=== PATIENT | male | born 1985 | race African-American/Black ===

== ENCOUNTER 2021-08-03 07:48 | Emergency (ER) | payer OTHER ==
[2021-08-03] MEDS ORDERED: SODIUM CHLORIDE 0.9% 1,000 ML IV STA (08:32)
[2021-08-03 08:43] VITALS: RESP 18
--- NOTE | 2021-08-03 08:46 | ED ---
General Adult HPI - General Chief complaint: Urogenital Stated complaint: blood in urine Time Seen by Provider: 08/03/21 08:15 Source: patient, RN notes reviewed Mode of arrival: ambulatory Limitations: no limitations - History of Present Illness Initial comments: This a 35-year-old male presents to the emergency Department with chief complaint of hematuria. Patient states she's had several episodes last few days. Patient does admit that he had recent seizure last week was in the hospital in [place]. Patient states that he had very sure of all the details as he was confused at the time. Patient states that he is to follow-up with his PCP he was placed on Keppra. Patient states he does have a fracture of his right shoulder. Patient denies any current headache dizziness states he didn't tongue injury related to a seizure but states that he had no abdominal pain denies any flank pain no history kidney stones. Patient states that is blood- tinged urine and blood itself. Patient has no dysuria - Related Data Home Medications Medication Instructions Recorded Confirmed levETIRAcetam [Keppra] 500 mg PO Q12HR 08/03/21 08/03/21 Previous Rx's Medication Instructions Recorded HYDROcodone/APAP 5-325MG [[place] 5] 1 each PO Q6HR PRN #12 tab 08/03/21 Ondansetron Odt [Zofran Odt] 4 mg PO Q8HR PRN #10 tab 08/03/21 Tamsulosin [Flomax] 0.4 mg PO DAILY #7 cap 08/03/21 Allergies Allergy/AdvReac Type Severity Reaction Status Date / Time No Known Allergies Allergy Verified 08/03/21 10:11 Review of Systems ROS Statement: Those systems with pertinent positive or pertinent negative responses have been documented in the HPI. ROS Other: All systems not noted in ROS Statement are negative. Past Medical History Past Medical History: Seizure Disorder History of Any Multi-Drug Resistant Organisms: None Reported Past Psychological History: No Psychological Hx Reported Smoking Status: Current every day smoker Past Alcohol Use History: Occasional Past Drug Use History: Marijuana General Exam Limitations: no limitations General appearance: alert, in no apparent distress Head exam: Present: atraumatic, normocephalic, normal inspection Eye exam: Present: normal appearance, PERRL, EOMI. Absent: scleral icterus, conjunctival injection, periorbital swelling ENT exam: Present: normal exam, normal oropharynx, mucous membranes moist Neck exam: Present: normal inspection, full ROM. Absent: tenderness, meningismus, lymphadenopathy Respiratory exam: Present: normal lung sounds bilaterally. Absent: respiratory distress, wheezes, rales, rhonchi, stridor Cardiovascular Exam: Present: regular rate, normal rhythm, normal heart sounds. Absent: systolic murmur, diastolic murmur, rubs, gallop, clicks GI/Abdominal exam: Present: soft, normal bowel sounds. Absent: distended, tenderness, guarding, rebound, rigid Back exam: Absent: CVA tenderness (R), CVA tenderness (L) Course Vital Signs 08/03/21 08/03/21 08/03/21 08:07 08:39 08:45 Temperature 98.2 F Pulse Rate 72 64 Respiratory 20 18 18 Rate Blood Pressure 126/82 128/87 O2 Sat by Pulse 100 99 100 Oximetry Medical Decision Making - Medical Decision Making 35-year-old male presented for right flank pain. Patient has evidence of 2 mm kidney stone in the ureter. Patient was given pain relief patient will be discharged in stable condition return parameters were discussed. - Lab Data Result diagrams: 08/03/21 08:47 08/03/21 08:47 Lab Results 08/03/21 08/03/21 08/03/21 Range/Units 08:47 08:47 08:47 WBC 12.7 H (3.8-10.6) k/uL RBC 4.66 (4.30-5.90) m/uL Hgb 14.9 (13.0-17.5) gm/dL Hct 44.3 (39.0-53.0) % MCV 95.0 (80.0-100.0) fL MCH 31.9 (25.0-35.0) pg MCHC 33.6 (31.0-37.0) g/dL RDW 13.0 (11.5-15.5) % Plt Count 227 (150-450) k/uL MPV 8.3 Neutrophils % 67 % Lymphocytes % 22 % Monocytes % 6 % Eosinophils % 3 % Basophils % 0 % Neutrophils # 8.5 H (1.3-7.7) k/uL Lymphocytes # 2.8 (1.0-4.8) k/uL Monocytes # 0.7 (0-1.0) k/uL Eosinophils # 0.3 (0-0.7) k/uL Basophils # 0.1 (0-0.2) k/uL PT 10.4 (9.0-12.0) sec INR 0.9 (<1.2) APTT 25.6 (22.0-30.0) sec Sodium 137 (137-145) mmol/L Potassium 4.3 (3.5-5.1) mmol/L Chloride 98 (98-107) mmol/L Carbon Dioxide 26 (22-30) mmol/L Anion Gap 13 mmol/L BUN 16 (9-20) mg/dL Creatinine 1.08 (0.66-1.25) mg/dL Est GFR (CKD-EPI)AfAm >90 (>60 ml/min/1.73 sqM) Est GFR (CKD-EPI)NonAf 87 (>60 ml/min/1.73 sqM) Glucose 104 H (74-99) mg/dL Plasma Lactic Acid Abner (0.7-2.0) mmol/L Calcium 10.1 (8.4-10.2) mg/dL Total Bilirubin 1.7 H (0.2-1.3) mg/dL AST 66 H (17-59) U/L ALT 34 (4-49) U/L Alkaline Phosphatase 51 (38-126) U/L Total Protein 8.1 (6.3-8.2) g/dL Albumin 4.8 (3.5-5.0) g/dL Amylase 104 (30-110) U/L Lipase 286 (23-300) U/L 08/03/21 Range/Units 08:47 WBC (3.8-10.6) k/uL RBC (4.30-5.90) m/uL Hgb (13.0-17.5) gm/dL Hct (39.0-53.0) % MCV (80.0-100.0) fL MCH (25.0-35.0) pg MCHC (31.0-37.0) g/dL RDW (11.5-15.5) % Plt Count (150-450) k/uL MPV Neutrophils % % Lymphocytes % % Monocytes % % Eosinophils % % Basophils % % Neutrophils # (1.3-7.7) k/uL Lymphocytes # (1.0-4.8) k/uL Monocytes # (0-1.0) k/uL Eosinophils # (0-0.7) k/uL Basophils # (0-0.2) k/uL PT (9.0-12.0) sec INR (<1.2) APTT (22.0-30.0) sec Sodium (137-145) mmol/L Potassium (3.5-5.1) mmol/L Chloride (98-107) mmol/L Carbon Dioxide (22-30) mmol/L Anion Gap mmol/L BUN (9-20) mg/dL Creatinine (0.66-1.25) mg/dL Est GFR (CKD-EPI)AfAm (>60 ml/min/1.73 sqM) Est GFR (CKD-EPI)NonAf (>60 ml/min/1.73 sqM) Glucose (74-99) mg/dL Plasma Lactic Acid Abner 1.4 (0.7-2.0) mmol/L Calcium (8.4-10.2) mg/dL Total Bilirubin (0.2-1.3) mg/dL AST (17-59) U/L ALT (4-49) U/L Alkaline Phosphatase (38-126) U/L Total Protein (6.3-8.2) g/dL Albumin (3.5-5.0) g/dL Amylase (30-110) U/L Lipase (23-300) U/L Disposition Clinical Impression: Right ureteral calculus Disposition: HOME SELF-CARE Condition: Stable Instructions (If sedation given, give patient instructions): Kidney Stones (ED) Additional Instructions: Please return to the Emergency Department if symptoms worsen or any other concerns. Prescriptions: Tamsulosin [Flomax] 0.4 mg PO DAILY #7 cap HYDROcodone/APAP 5-325MG [[place] 5] 1 each PO Q6HR PRN #12 tab PRN Reason: Pain Ondansetron Odt [Zofran Odt] 4 mg PO Q8HR PRN #10 tab PRN Reason: Nausea Is patient prescribed a controlled substance at d/c from ED?: No Referrals: None,Stated [REFERRING] - 1-2 days Asad Hayden MD [STAFF PHYSICIAN] - 1-2 days Time of Disposition: 10:30
[2021-08-03 09:13] LABS: ALT 34 U/L (4-49); AST 66 U/L (17-59); African American GFR (CKD) >90 (>60 ml/min/1.73 sqM); Albumin 4.8 g/dL (3.5-5.0); Alkaline Phosphatase 51 U/L (38-126); Amylase 104 U/L (30-110); Anion Gap 13 mmol/L; Blood Urea Nitrogen 16 mg/dL (9-20); Calcium 10.1 mg/dL (8.4-10.2); Carbon Dioxide 26 mmol/L (22-30); Chloride 98 mmol/L (98-107); Glucose 104 mg/dL (74-99); Lipase 286 U/L (23-300); Non-African American GFR(CKD) 87 (>60 ml/min/1.73 sqM); Potassium 4.3 mmol/L (3.5-5.1); Sodium 137 mmol/L (137-145); Total Bilirubin 1.7 mg/dL (0.2-1.3); Total Protein 8.1 g/dL (6.3-8.2)
[2021-08-03 09:18] LABS: Basophils # (A) 0.1 k/uL (0-0.2); Basophils % (A) 0 %; Eosinophils # (A) 0.3 k/uL (0-0.7); Eosinophils % (A) 3 %; HCT 44.3 % (39.0-53.0); HGB 14.9 gm/dL (13.0-17.5); Lymphocytes # (A) 2.8 k/uL (1.0-4.8); Lymphocytes % (A) 22 %; MCH 31.9 pg (25.0-35.0); MCHC 33.6 g/dL (31.0-37.0); Mean Platelet Volume 8.3; Monocytes # (A) 0.7 k/uL (0-1.0); Monocytes % (A) 6 %; Neutrophils # (A) 8.5 k/uL (1.3-7.7); Neutrophils % (A) 67 %; Platelet Count 227 k/uL (150-450); RBC 4.66 m/uL (4.30-5.90); WBC 12.7 k/uL (3.8-10.6)
[2021-08-03 09:26] LABS: INR 0.9 (<1.2); Partial Thromboplastin Time 25.6 sec (22.0-30.0); Prothrombin Time 10.4 sec (9.0-12.0)
--- NOTE | 2021-08-03 09:36 | CT ---
EXAMINATION TYPE: CT abdomen pelvis wo con DATE OF EXAM: 08/03/2021 COMPARISON: None available HISTORY: Hematuria. CT DLP: 404.4 mGycm Automated exposure control for dose reduction was used. TECHNIQUE: Helical acquisition of images was performed from the lung bases through the pelvis. FINDINGS: Artifacts in the upper abdomen by the patient's arm. LUNG BASES: Bilateral basal subsegmental pulmonary atelectasis. LIVER/GB: No significant abnormality is appreciated. PANCREAS: No significant abnormality is seen. SPLEEN: No significant abnormality is seen. ADRENALS: No significant abnormality is seen. KIDNEYS: Questionable subtle faint 2 mm calculus at the midpole of right kidney. Grossly unremarkable kidneys otherwise. FREE AIR: No free air is visualized RETROPERITONEAL ADENOPATHY: None visualized REPRODUCTIVE ORGANS: No significant abnormality is seen URINARY BLADDER: No significant abnormality is seen. PELVIC ADENOPATHY: No pathologically enlarged pelvic lymph nodes. OSSEOUS STRUCTURES: No significant abnormality is seen. BOWEL: Unremarkable nondistended stomach and duodenum. Suboptimal assessment of the small and large bowel. No evidence of bowel obstruction. Fecal loading of the colon. OTHER: No sizable ascites. Soft tissue thickening along the spermatic cords in the inguinal region bi laterally, nonspecific. Further elective ultrasound assessment can be considered. IMPRESSION: Questionable faint 2 mm calculus at the midpole of the right kidney, otherwise unremarkable kidneys. No other definite radiodense urinary calculi. Subtle urinary lesion or inflammatory/infectious process cannot be excluded by this nonenhanced CT sc an. Other incidental findings as described above.
[2021-08-03] MEDS ORDERED: ONDANSETRON 4 MG/2 ML VIAL IVP STA (11:20)
[2021-08-03] MEDS ORDERED: KETOROLAC 15 MG/ML 1 ML VIAL IVP STA (11:20)
[2021-08-03] MEDS ORDERED: HYDROmorphone 0.5 MG/0.5 ML SYRINGE IVP STA (11:20)
[2021-08-03 11:28] LABS: Appearance,Urine Clear (Clear); Bilirubin,Urine Negative (Negative); Blood,Urine Small (Negative); Color,Urine Yellow; Glucose,Urine (UA) Negative (Negative); Hyaline Casts,Urine 1 /lpf (0-2); Ketones,Urine Negative (Negative); Leukocyte Esterase,Urine Large (Negative); Mucus,Urine Rare /hpf; Nitrite,Urine Negative (Negative); PH, Urine 5.5 (5.0-8.0); Protein,Urine 1+ (Negative); RBC,Urine 6 /hpf (0-5); Specific Gravity,Urine 1.013 (1.001-1.035); Urobilinogen,Urine <2.0 mg/dL (<2.0); WBC,Urine 62 /hpf (0-5)
[2021-08-03 11:32] VITALS: BP 118/79; PULSE 71; TEMP 97.8
== END 2021-08-03 11:37 | disposition home or self-care (01) ==
LOC: EC 07:48
DX: N20.1 Calculus of ureter (principal); F17.200 Nicotine dependence, unspecified, uncomplicated
CPT/HCPCS: 36415; 80053; 82150; 83605; 83690; 85025; 85610; 85730; 81001; 87086; 74176; 99284; 96374; 96375; 96361; J2405; J1885; J1170

== ENCOUNTER 2021-08-10 14:16 | Emergency (ER) | payer OTHER ==
[2021-08-10 14:31] VITALS: BP 127/76; PULSE 66; RESP 18; TEMP 98.2
--- NOTE | 2021-08-10 19:17 | CT ---
EXAMINATION TYPE: CT shoulder RT wo con DATE OF EXAM: 08/10/2021 COMPARISON: None HISTORY: Shoulder pain CT DLP: mGycm Automated exposure control for dose reduction was used. Images obtained from the mid humerus to the top of the AC joint with no contrast. There is comminuted fracture of the right humeral neck. There is also large chip fracture of the grea ter tuberosity of the humerus. There is some impaction of the fragments. There is a posterior disloca tion of the major articular surface of the humeral head. The scapula is intact. AC joint is intact. There is also a fracture line through the acromion which i s irregular and not an acute fracture. IMPRESSION: There is comminuted posterior fracture dislocation of the right humeral head. Mild impaction of the f ragments. There is defect in the acromion that is consistent with an old ununited fracture or ununited apophysi s..
--- NOTE | 2021-08-10 20:13 | ED ---
General Adult HPI - General Chief complaint: Extremity Injury, Upper Stated complaint: Seizure, Right shoulder injury Time Seen by Provider: 08/10/21 17:45 Source: patient, RN notes reviewed, old records reviewed Mode of arrival: ambulatory Limitations: no limitations - History of Present Illness Initial comments: Patient is a 35-year-old male who presents emergency Department seeking computed tomography scan of the right shoulder. Patient was evaluated within the last 2 weeks, had an episode of potential seizure at home which caused him to fall onto the ground. Woke up 2 days later in the hospital with a known right shoulder fracture. Currently seeing neurology outpatient for seizures as well as orthopedics outpatient for his right shoulder injury. Was instructed by orthopedics to present to the emergency department to obtain CT of the right shoulder. Has attempted once or twice in last 2 days but waited a prolonged period of time multiple hours at both ERs without being seen. Presents today seeking CT imaging of the right shoulder only. Plan is for discharge home with a disc to take to a surgeon for follow-up and surgical planning. Denies any new complaints. Is complaining of intermittent right shoulder pain. Has been wearing a sling. Has no other complaints at this time. - Related Data Home Medications Medication Instructions Recorded Confirmed levETIRAcetam [Keppra] 500 mg PO Q12HR 08/03/21 08/03/21 Previous Rx's Medication Instructions Recorded HYDROcodone/APAP 5-325MG [[place] 5] 1 each PO Q6HR PRN #12 tab 08/03/21 Ondansetron Odt [Zofran Odt] 4 mg PO Q8HR PRN #10 tab 08/03/21 Tamsulosin [Flomax] 0.4 mg PO DAILY #7 cap 08/03/21 Allergies Allergy/AdvReac Type Severity Reaction Status Date / Time No Known Allergies Allergy Verified 08/03/21 10:11 Review of Systems ROS Statement: Those systems with pertinent positive or pertinent negative responses have been documented in the HPI. Review of Systems: CONST: Denies fever EYES: Denies blurry vision ENT: Denies nasal congestion C/V: Denies Chest pain RESP: Denies shortness of breath GI: Denies abdominal pain : Denies dysuria SKIN: Denies rash. MSK: Endorses right shoulder pain, known fracture. NEURO: Denies headache ROS Other: All systems not noted in ROS Statement are negative. Past Medical History Past Medical History: Seizure Disorder History of Any Multi-Drug Resistant Organisms: None Reported Additional Past Surgical History / Comment(s): hemroid Past Psychological History: No Psychological Hx Reported Smoking Status: Current every day smoker Past Alcohol Use History: Occasional Past Drug Use History: Marijuana General Exam - General Exam Comments Initial Comments: General: Appears in no acute distress. HEAD: Normal with no signs of head trauma. EYES: EOMI ENT: Hearing grossly intact RESPIRATORY: No increased work of breathing. Clear breath sounds bilaterally. C/V: Peripheral pulses 2+ and intact throughout. S1 and S2 auscultated. ABD: Abd is soft, nontender, nondistended EXT: Obvious reduced range of motion the right shoulder secondary to fracture that is known. Intact distal movement of the right hand. Neurovascular intact distal to the injury. Is currently wearing sling. SKIN: No rashes or lesions observed on exposed skin. NEURO: Alert and oriented 4. Limitations: no limitations Course Vital Signs 08/10/21 14:29 Temperature 98.2 F Pulse Rate 66 Respiratory 18 Rate Blood Pressure 127/76 O2 Sat by Pulse 98 Oximetry Medical Decision Making - Medical Decision Making Based on the patient's presentation and physical exam, he has a known right shoulder fracture but is seeking preoperative CT imaging after being unable to obtain CT imaging over the last week or so. Has no other acute request for complaints at this time. Exam is unremarkable. I believe it is reasonable to obtain a CT of the right shoulder which will be completed. He'll then be given a disc and instructions follow up with the surgeon outpatient. Shoulder CT does reveal a comminuted posterior fracture dislocation the right humeral head. There is also mild impaction the fragments. There is a defect of the acromion that could represent an old fracture. On reevaluation, patient was provided with a read of the CT as well as the CT disc. He'll be discharged home with instructions to follow up with the surgeons as planned. He was in agreement this plan. I instructed the patient to follow up with their PCP in the next 3 days. Patient will be given follow-up with our orthopedic surgeon on-call in the event that he cannot follow up with his surgeon. I explained that the patient should return to the emergency department if they experience any worsening symptoms. Strict return precautions were discussed with the patient. The patient expressed understanding of these instructions. I answered all questions that the patient had. The patient was discharged home in fair condition with their prescriptions and follow up information. Disposition Clinical Impression: Right shoulder injury, Humeral head fracture Disposition: HOME SELF-CARE Condition: Fair Instructions (If sedation given, give patient instructions): Proximal Humerus Fracture (ED) Is patient prescribed a controlled substance at d/c from ED?: No Referrals: Nonstaff,Physician [Primary Care Provider] - 1-2 days Laron Beal MD [Medical Doctor] - 1-2 days Time of Disposition: 20:12
== END 2021-08-10 20:16 | disposition home or self-care (01) ==
LOC: EC 14:16
DX: S42.291A Other displaced fracture of upper end of right humerus, initial encounter for closed fracture (principal); S49.91XA Unspecified injury of right shoulder and upper arm, initial encounter; F17.200 Nicotine dependence, unspecified, uncomplicated; W19.XXXA Unspecified fall, initial encounter

== ENCOUNTER 2022-02-22 13:03 | Emergency (ER) | payer OTHER ==
--- NOTE | 2022-02-22 13:28 | ED ---
General Adult HPI - General Stated complaint: COVID test Time Seen by Provider: 02/22/22 13:27 Source: patient, RN notes reviewed Mode of arrival: ambulatory Limitations: no limitations - History of Present Illness Initial comments: 28-year-old male presents emergency Department with chief complaint of possible COVID-19. Patient has mild body aches. Patient's significant other is positive for COVID-19. Patient states he just wants to make sure if he has or not. Denies any shortness breath chest pain nausea vomiting diarrhea constipation. - Related Data Home Medications Medication Instructions Recorded Confirmed levETIRAcetam [Keppra] 500 mg PO Q12HR 08/03/21 08/03/21 Previous Rx's Medication Instructions Recorded HYDROcodone/APAP 5-325MG [[place] 5] 1 each PO Q6HR PRN #12 tab 08/03/21 Ondansetron Odt [Zofran Odt] 4 mg PO Q8HR PRN #10 tab 08/03/21 Tamsulosin [Flomax] 0.4 mg PO DAILY #7 cap 08/03/21 Allergies Allergy/AdvReac Type Severity Reaction Status Date / Time No Known Allergies Allergy Verified 02/22/22 13:34 Review of Systems ROS Statement: Those systems with pertinent positive or pertinent negative responses have been documented in the HPI. ROS Other: All systems not noted in ROS Statement are negative. Past Medical History Past Medical History: Seizure Disorder History of Any Multi-Drug Resistant Organisms: None Reported Additional Past Surgical History / Comment(s): hemroid Past Psychological History: No Psychological Hx Reported Smoking Status: Current every day smoker Past Alcohol Use History: Occasional Past Drug Use History: Marijuana General Exam Limitations: no limitations General appearance: alert, in no apparent distress Head exam: Present: atraumatic, normocephalic, normal inspection Eye exam: Present: normal appearance, PERRL, EOMI. Absent: scleral icterus, conjunctival injection, periorbital swelling ENT exam: Present: normal exam, mucous membranes moist Neck exam: Present: normal inspection. Absent: tenderness, meningismus, lymphadenopathy Respiratory exam: Present: normal lung sounds bilaterally. Absent: respiratory distress, wheezes, rales, rhonchi, stridor Cardiovascular Exam: Present: regular rate, normal rhythm, normal heart sounds. Absent: systolic murmur, diastolic murmur, rubs, gallop, clicks GI/Abdominal exam: Present: soft, normal bowel sounds. Absent: distended, tenderness, guarding, rebound, rigid Neurological exam: Present: alert Skin exam: Present: warm, dry, intact, normal color. Absent: rash Course Vital Signs 02/22/22 13:33 Temperature 98.6 F Pulse Rate 61 Respiratory 20 Rate Blood Pressure 115/72 O2 Sat by Pulse 99 Oximetry Medical Decision Making - Medical Decision Making Was pt. sent in by a medical professional or institution? @ -no Did you speak to anyone other than the patient for history? @ -no Did you review nursing and triage notes? @ -agree and reviewed Were old charts reviewed? @ -no Differential Diagnosis? @ -URI, COVID-19, influenza, RSV EKG interpreted by me (3pts min.)? @ -none X-rays interpreted by me (1pt min.)? @ -none CT interpreted by me (1pt min.)? @ -none U/S interpreted by me (1pt. min.)? @ -none What testing was considered but not performed? (CT, X-rays, U/S, labs)? Why? @ no What meds were considered but not given? Why? @ -none Did you discuss the management of the patient with other professionals? @ -no Did you reconcile home meds? @ -no Was smoking cessation discussed for >3mins.? @ -no Was critical care preformed (if so, how long)? @ no Were there social determinants of health that impacted care today? How? (Homelessness, low income, unemployed, alcoholism, drug addiction, transp ortation, low edu. Level, literacy, decrease access to med. care, fpc, rehab)? @ -no Was there de-escalation of care discussed even if they declined? (Discuss DNR or withdrawal of care, Hospice)? @ no What co-morbidities impacted this encounter? (DM, HTN, Smoking, COPD, CAD, Cancer, CVA, Hep., AIDS, mental health diagnosis, sleep apnea, morbid obesity)? @ -no Was patient admitted / discharged? @ discharged Undiagnosed new problem with uncertain prognosis? @ -no Drug Therapy requiring intensive monitoring for toxicity (Heparin, Nitro, Insulin, Cardizem)? @ -none Were any procedures done? @ -none Diagnosis/symptom? @ -Encounter for COVID-19 testing Acute, or Chronic, or Acute on Chronic? @ -acute Uncomplicated (without systemic symptoms) or Complicated (systemic symptoms)? @ -Uncomplicated Side effects of treatment? @ -none Exacerbation, Progression, or Severe Exacerbation] @ -no Poses a threat to life or bodily function? @ -no - Lab Data Lab Results 02/22/22 Range/Units 13:36 Coronavirus (PCR) Not Detected (Not Detectd) Disposition Clinical Impression: Encounter for screening for COVID-19 Disposition: HOME SELF-CARE Condition: Stable Additional Instructions: Please return to the Emergency Department if symptoms worsen or any other concerns. Is patient prescribed a controlled substance at d/c from ED?: No Referrals: Jamir Cheung MD [Primary Care Provider] - 1-2 days Time of Disposition: 14:29
[2022-02-22 13:35] VITALS: BP 115/72; PULSE 61; RESP 20; TEMP 98.6
== END 2022-02-22 15:02 | disposition home or self-care (01) ==
LOC: EC 13:03
DX: Z01.84 Encounter for antibody response examination (principal); F17.200 Nicotine dependence, unspecified, uncomplicated; F12.90 Cannabis use, unspecified, uncomplicated
CPT/HCPCS: 87635; 99283

== ENCOUNTER 2023-04-05 23:58 | Emergency (ER) | payer OTHER ==
[2023-04-06 00:42] VITALS: RESP 18
--- NOTE | 2023-04-06 01:42 | ED ---
ENT HPI - General Chief complaint: ENT Stated complaint: sore throat body ache Time Seen by Provider: 04/06/23 01:41 Source: patient Mode of arrival: ambulatory Limitations: no limitations - History of Present Illness Initial comments: 37-year-old male presenting to the ED with a chief complaint of body aches. Patient states today onset of some body aches and cough and per request of his significant other wanted to be evaluated due to having a at home. Denies fever or chills. No chest pain or shortness of breath. No other complaints at this time. - Related Data Home Medications Medication Instructions Recorded Confirmed levETIRAcetam [Keppra] 500 mg PO Q12HR 08/03/21 08/03/21 Previous Rx's Medication Instructions Recorded HYDROcodone/APAP 5-325MG [[place] 5] 1 each PO Q6HR PRN #12 tab 08/03/21 Ondansetron Odt [Zofran Odt] 4 mg PO Q8HR PRN #10 tab 08/03/21 Tamsulosin [Flomax] 0.4 mg PO DAILY #7 cap 08/03/21 Allergies Allergy/AdvReac Type Severity Reaction Status Date / Time No Known Allergies Allergy Verified 02/22/22 13:34 Review of Systems ROS Statement: Those systems with pertinent positive or pertinent negative responses have been documented in the HPI. ROS Other: All systems not noted in ROS Statement are negative. Past Medical History Past Medical History: Seizure Disorder History of Any Multi-Drug Resistant Organisms: None Reported Past Surgical History: Orthopedic Surgery Additional Past Surgical History / Comment(s): hemroid Past Psychological History: No Psychological Hx Reported Smoking Status: Current every day smoker Past Alcohol Use History: Occasional Past Drug Use History: Marijuana General Exam Limitations: no limitations General appearance: alert, in no apparent distress Eye exam: Present: normal appearance ENT exam: Present: other (Minimal swelling of the tonsils. No evidence of perit onsillar abscess. Tolerating secretions. No stridor.) Neck exam: Present: normal inspection Respiratory exam: Present: normal lung sounds bilaterally Cardiovascular Exam: Present: regular rate, normal rhythm GI/Abdominal exam: Present: soft Neurological exam: Present: alert, oriented X3 Skin exam: Present: warm, dry Course Vital Signs 04/06/23 00:05 Temperature 97.8 F Pulse Rate 59 L Respiratory 18 Rate Blood Pressure 128/78 O2 Sat by Pulse 98 Oximetry Medical Decision Making - Medical Decision Making Was pt. sent in by a medical professional or institution (RORY Bassett, DYE JIG OPERATOR, urgent care, hospital, or long-term...) When possible be specific @ -No Did you speak to anyone other than the patient for history (EMS, parent, family, police, friend...)? What history was obtained from this source @ -No Did you review nursing and triage notes (agree or disagree)? Why? @ -I reviewed and agree with nursing and triage notes Were old charts reviewed (outside hosp., previous admission, EMS record, old EKG, old radiological studies, urgent care reports/EKG's, long-term records)? Report findings @ -No old charts were reviewed Differential Diagnosis (chest pain, altered mental status, abdominal pain women, abdominal pain men, vaginal bleeding, weakness, fever, dyspnea, syncope, headache, dizziness, GI bleed, back pain, seizure, CVA, palpatations, mental health, musculoskeletal)? @ -Differential Fever: Pneumonia, viral URI, endocarditis, myocarditis, pericarditis, otitis, sinusitis, peritonsillar Abscess, retropharyngeal Abscess, epiglottitis, peritonitis, appendicitis, Gayle cystitis, diverticulitis, hepatitis, colitis, UTI, PID, TOA, pyelonephritis, prostatitis, epididymitis, meningitis, encephalitis, pulmonary embolism, CVA, thyroid storm, pancreatitis, adrenal crisis, cavernous sinus thrombosis, this is not meant to be an all-inclusive list. EKG interpreted by me (3pts min.). @ -None X-rays interpreted by me (1pt min.). @ -None done CT interpreted by me (1pt min.). @ -None done U/S interpreted by me (1pt. min.). @ -None done What testing was considered but not performed or refused? (CT, X-rays, U/S, labs)? Why? @ -None What meds were considered but not given or refused? Why? @ -None Did you discuss the management of the patient with other professionals (p rofessionals i.e. RORY Bassett, DYE JIG OPERATOR, lab, RT, psych nurse, hospital social worker, claim trainee, teacher, targeting acquisition officer, block and case maker)? Give summary @ -No Was smoking cessation discussed for >3mins.? @ -No Was critical care preformed (if so, how long)? @ -No Were there social determinants of health that impacted care today? How? (Homelessness, low income, unemployed, alcoholism, drug addiction, transportation, low edu. Level, literacy, decrease access to med. care, assisted, rehab)? @ -No Was there de-escalation of care discussed even if they declined (Discuss DNR or withdrawal of care, Hospice)? DNR status @ -No What co-morbidities impacted this encounter? (DM, HTN, Smoking, COPD, CAD, Cancer, CVA, ARF, Chemo, Hep., AIDS, mental health diagnosis, sleep apnea, morbid obesity)? @ -None Was patient admitted / discharged? Hospital course, mention meds given and route, prescriptions, significant lab abnormalities, going to OR and other pertinent info. @ -Discharged 37-year-old male presents to the ED with 1 day history of myalgias and sore throat. Serology panel here unremarkable. At this time vital signs stable afebrile. Symptoms likely viral in nature. Advised supportive care. Discharged home in stable condition. Discussed return precautions with patient who verbalizes agreement. Undiagnosed new problem with uncertain prognosis? @ -No Drug Therapy requiring intensive monitoring for toxicity (Heparin, Nitro, Insulin, Cardizem)? @ -No Were any procedures done? @ -No Diagnosis/symptom? @ -Viral URI Acute, or Chronic, or Acute on Chronic? @ -Acute Uncomplicated (without systemic symptoms) or Complicated (systemic symptoms)? @ -Uncomplicated Side effects of treatment? @ -No Exacerbation, Progression, or Severe Exacerbation? @ -No Poses a threat to life or bodily function? How? (Chest pain, [place], [place], pneumonia, PE, COPD, DKA, ARF, appy, cholecystitis, CVA, Diverticulitis, Homicidal, Suicidal, threat to staff... and all critical care pts) @ -No - Lab Data Lab Results 04/06/23 Range/Units 00:11 Influenza Type A (PCR) Not Detected (Not Detectd) Influenza Type B (PCR) Not Detected (Not Detectd) RSV (PCR) Not Detected (Not Detectd) SARS-CoV-2 (PCR) Not Detected (Not Detectd) Disposition Clinical Impression: Viral URI Disposition: HOME SELF-CARE Condition: Good Instructions (If sedation given, give patient instructions): Upper Respiratory Infection (ED) Additional Instructions: Please return to the Emergency Department if symptoms worsen or any other concerns. Follow up with her primary care provider. Is patient prescribed a controlled substance at d/c from ED?: No Referrals: Jamir Cheung MD [Primary Care Provider] - 1-2 days Time of Disposition: 01:44
[2023-04-06 01:52] VITALS: BP 122/65; PULSE 67; TEMP 97.9
== END 2023-04-06 01:51 | disposition home or self-care (01) ==
LOC: EC 23:58
DX: J06.9 Acute upper respiratory infection, unspecified (principal); F17.200 Nicotine dependence, unspecified, uncomplicated; F12.90 Cannabis use, unspecified, uncomplicated; G40.909 Epilepsy, unspecified, not intractable, without status epilepticus; Z20.822 Contact with and (suspected) exposure to COVID-19; Z79.899 Other long term (current) drug therapy
CPT/HCPCS: 87636; 99283